=== PATIENT | male | born 1995 | race Two or more races ===

== ENCOUNTER 2021-11-02 10:00 | Emergency (ER) | payer MEDICAID ==
[~2021-11-02] VITALS: Ht 170.2 cm; Wt 76.8 kg
[2021-11-02 10:10] VITALS: BP 124/80
[2021-11-02] MEDS ORDERED: ondansetron 4mg rapidly disintigrating tab PO ONE (11:00)
[2021-11-02] MEDS ORDERED: oxyCODONE IR 5mg (immed. release) tablet PO ONE (11:00)
[2021-11-02] MEDS ORDERED: ketorolac trometh. 30mg/ml inj. IM ONE (11:00)
[2021-11-02] MEDS ORDERED: OXYC-658 PO (13:38)
== END 2021-11-02 13:59 | disposition home or self-care (01) ==
LOC: ER 10:01
DX: M25.551 Pain in right hip (principal); M54.59 Other low back pain
CPT/HCPCS: 72131; 72192; 96372; 99284; J1885